=== PATIENT | male | born 1985 | race African-American/Black ===

== ENCOUNTER 2017-03-27 16:25 | Emergency (ER) | payer OTHER ==
[~2017-03-27] VITALS: Ht 180.3 cm; Wt 77.3 kg
[2017-03-27] MEDS ORDERED: IBUPROFEN 800 MG TABLET PO ONE (19:45)
[2017-03-27 19:55] VITALS: BP 111/70
== END 2017-03-27 19:56 | disposition home or self-care (01) ==
LOC: EMS 16:30
DX: R51 Headache (principal); F12.90 Cannabis use, unspecified, uncomplicated
CPT/HCPCS: 99282